=== PATIENT | female | born 1970 | race Caucasian/White ===

== ENCOUNTER → 2017-08-24 | Outpatient (CLI) | payer OTHER | END | disposition home or self-care (01) | LOC: MAMO-SONO 01-05 12:15 → RAD 12:07 | DX: I10 Essential (primary) hypertension (principal) ==

== ENCOUNTER 2017-11-17 10:32 | Outpatient (CLI) | payer OTHER | END 2017-11-17 10:46 | disposition home or self-care (01) | LOC: SONOGRAMA 10:32 | DX: R10.13 Epigastric pain (principal) ==

== ENCOUNTER 2018-11-08 10:29 | Outpatient (CLI) | payer OTHER | END 2018-11-08 10:31 | disposition home or self-care (01) | LOC: RAD 10:29 | DX: R07.89 Other chest pain (principal) ==

== ENCOUNTER 2019-03-28 12:16 | Outpatient (CLI) | payer OTHER | END 2019-03-28 12:25 | disposition home or self-care (01) | LOC: MAMO-SONO 12:16 | DX: R10.2 Pelvic and perineal pain (principal); Z12.31 Encounter for screening mammogram for malignant neoplasm of breast; Z87.898 Personal history of other specified conditions; N60.11 Diffuse cystic mastopathy of right breast ==

== ENCOUNTER → 2020-05-21 | Outpatient (CLI) | payer OTHER | END | disposition home or self-care (01) | LOC: MAMO-SONO 10:20 | PROVIDERS: ATTEND Obstetrics & Gynecology | DX: Z12.31 Encounter for screening mammogram for malignant neoplasm of breast (principal); N60.11 Diffuse cystic mastopathy of right breast; N91.1 Secondary amenorrhea ==

== ENCOUNTER 2025-03-06 08:36 | Outpatient (CLI) | payer OTHER | END 2025-03-06 16:07 | disposition home or self-care (01) | LOC: MRI 08:36 | PROVIDERS: ATTEND Obstetrics & Gynecology | DX: N83.209 Unspecified ovarian cyst, unspecified side (principal) | CPT/HCPCS: 72197 ==